=== PATIENT | female | born 1975 | race Caucasian/White ===

== ENCOUNTER → 2021-09-26 08:40 | Outpatient (CLI) | payer MEDICAID, SELFPAY ==
--- NOTE | ~2021-09-26 | MMUS_ITS ---
EXAMINATION: MM diagnostic mary BI w [place], US breast RT limited HISTORY: Palpable lump upper inner right breast TECHNIQUE: Craniocaudal, mediolateral, and mediolateral oblique 3-D tomosynthesis images of the candida ts were performed and synthetic 2-D images were generated. CAD analysis was submitted and interpreted . High resolution limited right breast ultrasound was performed. COMPARISON: No prior mammogram is currently available comparison. BREAST PARENCHYMAL COMPOSITION: There are scattered areas of fibroglandular density. FINDINGS: MAMMOGRAPHIC FINDINGS: There is no evidence of suspicious mass, calcification, or architectural distortion in either breast to suggest malignancy. No mammographic correlate is identified for the reported palpable abnormality of the right breast. ULTRASOUND: There is an approximately 3.3-0.8 cm oval, circumscribed, parallel, isoechoic mass at the 1:30 locati on 9 cm from corresponding to palpable abnormality of concern. No definite posterior features or inte rnal vascularity are identified. IMPRESSION: 1. Probably benign right breast mass corresponding to the palpable abnormality of concern. 2. Recommend 6 month follow-up targeted right breast ultrasound and continued clinical examination. BI-RADS category 3, probably benign findings. Reviewed, dictated and finalized at location A. WRAPPER IMPRESSION: 1. Probably benign right breast mass corresponding to the palpable abnormality of concern. 2. Recommend 6 month follow-up targeted right breast ultrasound and continued c linical examination. BI-RADS category 3, probably benign findings.
== END ==
PROVIDERS: Visit Provider Obstetrics & Gynecology
DX: N63.12 Unspecified lump in the right breast, upper inner quadrant (principal)
CPT/HCPCS: 76642; 77062; 77066; G0279